=== PATIENT | female | born 1970 | race Caucasian/White ===

== ENCOUNTER 2020-12-08 00:44 | Emergency (ER) | payer OTHER, SELFPAY ==
--- NOTE | ~2020-12-08 | CT_ITS ---
EXAMINATION: CT abdomen pelvis wo con DATE: 12/08/2020 02:02 INDICATION: Left flank pain TECHNIQUE: Computed tomography (CT) of the abdomen and pelvis was performed without intravenous contr ast. Automated exposure control and iterative reconstruction technique were employed. Exam dose: 917 .96 mGy-cm total exam DLP. COMPARISON: None. FINDINGS: There is minimal bilateral lower lobe dependent atelectasis. Normal heart size. No pericardial or pleural effusion. Small sliding hiatal hernia. Diffuse hepatic steatosis. Status post cholecystectomy. No bile duct or pancreatic duct dilatation. No hepatic, pancreatic, sple finn, and adrenal or renal space-occupying mass lesion. No ureteral calculus or hydroureteronephrosis is evident. Normal caliber of the abdominal aorta. No i ntraperitoneal or retroperitoneal or pelvic mass lesion or adenopathy or ascites. The uterus and adne xal areas and urinary bladder are unremarkable. Mild sigmoid diverticulosis. No CT evidence of diverticulitis. Severe degenerative disc disease at L3-4, L4-5. Moderately prominent degenerative disc disease at the remaining lumbar and lumbosacral interspaces. IMPRESSION: No urinary tract calculus or hydroureteronephrosis is evident Status post cholecystectomy Hepatic steatosis Small sliding hiatal hernia Mild diverticulosis of the sigmoid colon; no CT evidence of diverticulitis Reviewed, dictated and finalized at [facility] Reviewed, dictated and finalized at [facility].
[2020-12-08 00:52] VITALS: BP 143/83; PULSE 72; RESP 18; TEMP 36.2; O2SAT 100
--- NOTE | 2020-12-08 01:14 | ED.GENADULT ---
HPI - General Adult General Chief complaint: Abdominal Pain Stated complaint: L flank pain Time Seen by Provider: 12/08/20 00:59 History of Present Illness HPI narrative: Left flank pain for the past 4 days. No radiation. Nothing makes it better or worse. Associated with decreased urine output. No dysuria, hematuria, fever. Related Data Home Medications Medication Instructions Recorded Confirmed infliximab [Remicade] See Rx Instructions .ROUTE .COMPLEX 07/24/19 07/24/19 levothyroxine [Synthroid] 88 mcg PO DAILY 07/24/19 07/24/19 losartan 25 mg PO BID 07/24/19 07/24/19 Allergies Allergy/AdvReac Type Severity Reaction Status Date / Time Iodinated Contrast Media Allergy Severe anaphalaxis Verified 12/08/20 01:35 acetaminophen [From Vicodin] Allergy Hives Verified 12/08/20 01:35 hydrocodone [From Vicodin] Allergy Hives Verified 12/08/20 01:35 Review of Systems Review of Systems: All systems reviewed & are unremarkable except as noted in HPI and below Constitutional: Constitutional: Denies chills and Denies fever(s) ENT: Reports system reviewed and no additional complaints, except as documented Cardiovascular: Cardiovascular: Denies chest pain Respiratory: Respiratory: Denies dyspnea Gastrointestinal: Gastrointestinal: Denies abdominal pain, Denies constipation, Denies diarrhea, Reports nausea and Denies vomiting Genitourinary: Genitourinary: Denies hematuria and Denies dysuria Neurologic: Reports system reviewed and no additional complaints, except as documented PMFSH Past Medical History Medical History (Updated 12/20/20 @ 17:47 by Dwayne Francisco MD) Diabetes insipidus Family History Family History (Updated 05/04/14 @ 07:13 by DOCTOR UNKNOWN) Mother Hypertension Family history of chronic obstructive pulmonary disease Grandparent Family history of malignant neoplasm Family history of renal failure Family history of congestive heart failure Sibling Family history of ankylosing spondylitis Father Family history of lung cancer Social History Social History Smoking status: Never smoker Alcohol intake: never Exam Const: General: no acute distress and alert Nutritional Appearance: well nourished Orientation/consciousness: patient oriented x3 HENMT: Head: normal to inspection Neck: Neck: normal visual inspection Resp: Effort & Inspection: normal respiratory effort Auscultation: clear to auscultation bilaterally Cardio: Rate: regular rate Rhythm: regular rhythm GI: Inspection: non-distended GI Palp: Yes Soft to palpation and No Tenderness to palpation present (GI) : General: Yes no CVA tenderness Skin: General skin exam: normal color Neuro: General: patient oriented x3, moves all extremities and no focal motor deficits Speech: normal speech Gait exam (Neuro): Normal gait present Extrem: General: normal to inspection Course Vital Signs Vital signs: Vital Signs Temperature 36.2 C L 12/08/20 00:52 Pulse Rate 72 12/08/20 00:52 Respiratory Rate 18 12/08/20 00:52 Blood Pressure 143/83 H 12/08/20 00:52 Pulse Oximetry 100 12/08/20 00:52 Temperature 36.2 C L 12/08/20 00:52 Pulse Rate 76 12/08/20 04:24 Respiratory Rate 18 12/08/20 04:24 Blood Pressure 123/70 12/08/20 04:24 Pulse Oximetry 98 12/08/20 04:24 Medical Decision Making MDM Narrative Medical decision making narrative: Evaluation essential negative. Most likely musculoskeletal pain Medical Records Medical records reviewed: Yes I reviewed the external patient's medical records. Vital Signs Vital Signs: Vital Signs Temperature 36.2 C L 12/08/20 00:52 Pulse Rate 72 12/08/20 00:52 Respiratory Rate 18 12/08/20 00:52 Blood Pressure 143/83 H 12/08/20 00:52 Pulse Oximetry 100 12/08/20 00:52 Temperature 36.2 C L 12/08/20 00:52 Pulse Rate 76 12/08/20 04:24 Respiratory Rate 18 12/08/20 04:24 Blood Pressure 123/70 12/08/20 04:24 Pulse Oxi
[2020-12-08] MEDS: SODIUM CHLORIDE 0.9% IV 1,000 ML 999 ML IV CONT (02:00)
[2020-12-08 02:04] LABS: Basophils Absolute Auto 0.1 K/mm3 (0.0-0.1); Basophils Percent Auto 0.5 % (0.2-1.2); Eosinophils Absolute Auto 0.1 K/mm3 (0-0.3); Eosinophils Percent Auto 0.7 % (0-4.4); Hematocrit 41.3 % (37.0-47.0); Hemoglobin 13.8 g/dL (12.0-15.0); Immature Granulocyte Absolute 0.06 K/mm3 (0.00-0.031); Immature Granulocyte Percent A 0.5 % (0-0.5); Lymphocytes Absolute Auto 4.56 K/mm3 (0.9-3.2); Lymphocytes Percent Auto 39.9 % (18.3-44.2); Mean Corpuscular HGB Conc 33.4 g/dl (32-36); Mean Corpuscular Hemoglobin 30.6 pg (26-34); Mean Corpuscular Volume 91.6 fl (80-100); Mean Platelet Volume 11.4 fl (7.4-10.4); Monocytes Percent Auto 9.1 % (2.6-8.5); Neutrophils Absolute Auto 5.6 K/mm3 (1.3-6.7); Neutrophils Percent Auto 49.3 % (45.5-73.1); Platelet Count Result 297 k/mm3 (150-375); Red Blood Count 4.51 M/mm3 (4.2-5.4); Red Cell Distribution Width 13.8 % (11.5-14.5); White Blood Count 11.4 K/mm3 (4.5-10.0)
[2020-12-08 02:17] LABS: Alanine Aminotransferase 56 U/L (4-35); Albumin Level 4.8 g/dL (3.5-5.1); Alkaline Phosphatase 86 U/L (38-126); Anion Gap 6 mmol/L (8-16); Aspartate Amino Transferase 39 U/L (14-36); Bilirubin,Total 0.6 mg/dL (0.2-1.3); Blood Urea Nitrogen 11 mg/dL (7-17); Calcium 9.2 mg/dL (8.4-10.2); Carbon Dioxide 32 mmol/L (22-30); Chloride 103 mmol/L (98-107); Estimated CRCL calculation 127 ml/min; Estimated Glomerular Filt Rate > 60; Glucose 124 mg/dL (65-105); Lipase 178 U/L (23-300); Potassium 3.4 mmol/L (3.4-5.0); Sodium 141 mmol/L (137-145)
[2020-12-08 02:31] LABS: Add Urine Microscopic? NO; Appearance Urine Clear (Clear); Bilirubin Urine Negative (Negative); Blood Urine Negative (Negative); Color Urine Colorless (Yellow); Glucose Urine UA Negative (Negative); Ketones Urine Negative (Negative); Leukocyte Esterase Ur Negative LEU/UL (Negative); Nitrate Urine Negative (Negative); Protein Urine Negative (Negative); Urobilinogen Urine Negative mg/dL (<2.0)
[2020-12-08 02:35] LABS: Specific Grav Ur 1.004 (1.001-1.035)
[2020-12-08 02:38] VITALS: BP 121/72; PULSE 66; RESP 18; O2SAT 100
[2020-12-08] MEDS: DICYCLOMINE HCL INJ 20 MG/2 ML VIAL IM (03:24)
[2020-12-08 04:24] VITALS: BP 123/70; PULSE 76; RESP 18; O2SAT 98
== END 2020-12-08 04:57 | disposition home or self-care (01) ==
PROVIDERS: Emergency Provider Emergency Medicine; PCP Family Medicine
DX: R10.9 Unspecified abdominal pain (principal); E23.2 Diabetes insipidus; K76.0 Fatty (change of) liver, not elsewhere classified; K44.9 Diaphragmatic hernia without obstruction or gangrene; K57.30 Diverticulosis of large intestine without perforation or abscess without bleeding
CPT/HCPCS: 36415; 74176; 80053; 81003; 81025; 83690; 85025; 96360; 96372; 99284; J0500; J7030

== ENCOUNTER 2021-09-01 18:59 | Emergency (ER) | payer OTHER, SELFPAY ==
--- NOTE | ~2021-09-01 | XR_ITS ---
EXAMINATION: XR tibia fibula LT 2V DATE: 09/01/2021 21:01 INDICATION: Wound to the distal lateral left lower leg. TECHNIQUE: Anteroposterior and lateral views of the left tibia and fibula were obtained. COMPARISON: None. FINDINGS: Bone alignment is normal. No fracture. Joint spaces are normal. No evident left knee or ankle joint e ffusion. Moderate-sized Achilles and plantar calcaneal spurs. No periosteal reaction or suspicious ly tic or blastic bone lesions. Mild soft tissue swelling with some subcutaneous edema along the lateral aspect of the distal lower leg. No soft tissue gas or radiopaque foreign bodies. IMPRESSION: 1. No acute osseous abnormality, soft tissue gas or radiopaque foreign body. Reviewed, dictated and finalized at [facility]. [employer]
[2021-09-01 19:03] VITALS: BP 167/87; PULSE 91; RESP 18; TEMP 37.1; O2SAT 98
[2021-09-01 21:07] LABS: Basophils Absolute Auto 0.1 K/mm3 (0.0-0.1); Basophils Percent Auto 0.6 % (0.2-1.2); Eosinophils Absolute Auto 0.1 K/mm3 (0-0.3); Eosinophils Percent Auto 0.6 % (0-4.4); Hematocrit 40.4 % (37.0-47.0); Hemoglobin 13.6 g/dL (12.0-15.0); Immature Granulocyte Absolute 0.24 K/mm3 (0.00-0.031); Immature Granulocyte Percent A 1.7 % (0-0.5); Lymphocytes Absolute Auto 3.95 K/mm3 (0.9-3.2); Lymphocytes Percent Auto 27.5 % (18.3-44.2); Mean Corpuscular HGB Conc 33.7 g/dl (32-36); Mean Corpuscular Hemoglobin 32.2 pg (26-34); Mean Corpuscular Volume 95.7 fl (80-100); Mean Platelet Volume 10.2 fl (7.4-10.4); Monocytes Absolute Auto 1.3 K/mm3 (0.1-0.6); Monocytes Percent Auto 9.1 % (2.6-8.5); Neutrophils Absolute Auto 8.7 K/mm3 (1.3-6.7); Neutrophils Percent Auto 60.5 % (45.5-73.1); Platelet Count Result 302 k/mm3 (150-375); Red Blood Count 4.22 M/mm3 (4.2-5.4); Red Cell Distribution Width 13.2 % (11.5-14.5); White Blood Count 14.4 K/mm3 (4.5-10.0)
[2021-09-01] MEDS: TETANUS,DIPHTHERIA,AC PERTUSSIS ADULT (0.5 ML) BOOSTRIX IM (21:14)
[2021-09-01 21:21] LABS: Alanine Aminotransferase 50 U/L (4-35); Albumin Level 4.4 g/dL (3.5-5.1); Alkaline Phosphatase 81 U/L (38-126); Anion Gap 8 mmol/L (8-16); Aspartate Amino Transferase 30 U/L (14-36); Bilirubin,Total 0.6 mg/dL (0.2-1.3); Blood Urea Nitrogen 7 mg/dL (7-17); CRP 1.1 mg/dL (<1.0); Calcium 9.7 mg/dL (8.4-10.2); Carbon Dioxide 28 mmol/L (22-30); Chloride 102 mmol/L (98-107); Estimated CRCL calculation 126 ml/min; Estimated Glomerular Filt Rate > 60; Glucose 118 mg/dL (65-110); Potassium 4.1 mmol/L (3.4-5.0); Sodium 138 mmol/L (137-145)
--- NOTE | 2021-09-01 21:29 | ED.GENADULT ---
HPI - General Adult General Chief complaint: Skin/Abscess/Foreign Body Stated complaint: infected area on left lower leg Time Seen by Provider: 09/01/21 19:23 Source: patient Mode of arrival: ambulatory Limitations: no limitations History of Present Illness HPI narrative: Patient presents for evaluation of pain, swelling, erythema to the left lower leg since 08/08/21. She does not remember any precipitating cause or injury. She saw her primary care provider who thought it was related to a spider bite due to what appeared to be puncture valerio. She was placed on doxycycline. She had no improvement in her symptoms. She was later placed on Keflex and completed that therapy as well without significant improvement. She has noted worsening redness to the affected area. She denies any fever, chills, nausea, vomiting, drainage from the affected area. She has been applying mupirocin without significant improvement. She currently rates her pain as 9, described as stabbing , without radiation. Date of last tetanus unknown. She is diabetic. No additional complaints or concerns. Related Data Home Medications Medication Instructions Recorded Confirmed infliximab [Remicade] See Rx Instructions .ROUTE .COMPLEX 07/24/19 07/24/19 levothyroxine [Synthroid] 88 mcg PO DAILY 07/24/19 07/24/19 losartan 25 mg PO BID 07/24/19 07/24/19 Allergies Allergy/AdvReac Type Severity Reaction Status Date / Time Iodinated Contrast Media Allergy Severe anaphalaxis Verified 12/08/20 01:35 acetaminophen [From Vicodin] Allergy Hives Verified 12/08/20 01:35 hydrocodone [From Vicodin] Allergy Hives Verified 12/08/20 01:35 Review of Systems Review of Systems: CONSTITUTIONAL: Denies fever, chills, or sweats. EYES: Denies visual changes, redness, or discharge. ENT: Denies rhinorrhea, congestion, sore throat, or otalgia. CARDIOVASCULAR: Denies chest pain, palpitations, or edema. RESPIRATORY: Denies cough or dyspnea. GASTROINTESTINAL: Denies abdominal pain, nausea, vomiting, or diarrhea. GENITOURINARY: Denies dysuria or hematuria. SKIN: Reports redness to left lower leg. Denies rash or itching. MUSCULOSKELETAL: Reports pain to left lower leg. Denies back pain or myalgia. NEUROLOGIC: Denies headache, numbness, dizziness, or weakness. PSYCHIATRIC: Denies anxiety or depression. [facility] Past Medical History Medical History (Updated 09/01/21 @ 21:37 by LADY Underwood, ) Cervical spinal cord injury Diabetes insipidus Hypertension Hypothyroidism Rheumatoid arthritis Surgical History Surgical History History of laminectomy S/P insertion of spinal cord stimulator Family History Family History Mother Hypertension Family history of chronic obstructive pulmonary disease Grandparent Family history of malignant neoplasm Family history of renal failure Family history of congestive heart failure Sibling Family history of ankylosing spondylitis Father Family history of lung cancer Social History Social History Smoking status: Never smoker Alcohol intake: never Substance use: never Living arrangements: with family Gender identity (if verbalized by the patient): Female Sexual Orientation (if Verbalized by the Patient): Straight or Heterosexual Spiritual care concerns: No Exam Narrative: GENERAL: Well-appearing, well-nourished, and in no acute distress. HEAD: Normocephalic, atraumatic. EYES: PERRLA and EOMI. ENT: Nares clear, no rhinorrhea or epistaxis. Mucous membranes moist. Oropharynx without tonsillar hypertrophy exudate or other lesions. Bilateral TMs pearly morin nonbulging NECK: Supple. No adenopathy or masses. No carotid bruits or JVD CHEST: Clear to auscultation. No respiratory distress. No wheezes rales or rhonchi HEART: Regular rate and
[2021-09-01 21:32] LABS: Erythrocyte Sedimentation Rate 41 mm/hr (0-20)
[2021-09-01 21:50] VITALS: BP 135/91; PULSE 83; RESP 17; O2SAT 100
== END 2021-09-01 21:51 | disposition home or self-care (01) ==
PROVIDERS: Emergency Provider Nurse Practitioner; PCP Family Medicine
DX: R21 Rash and other nonspecific skin eruption (principal); Z23 Encounter for immunization; E23.2 Diabetes insipidus; I10 Essential (primary) hypertension; E03.9 Hypothyroidism, unspecified; M06.9 Rheumatoid arthritis, unspecified
CPT/HCPCS: 36415; 73590; 80053; 85025; 85652; 86140; 90471; 90715; 99283